=== PATIENT | male | born 1980 | race Caucasian/White ===

== ENCOUNTER 2021-05-23 17:16 | Emergency (ER) | payer SELFPAY ==
[~2021-05-23] VITALS: Ht 188 cm; Wt 80.0 kg
--- NOTE | 2021-05-23 18:13 | NUR ---
Pt sleeping, RR equal and unlabored. VSS. Will continue to monitor.
[2021-05-23 18:43] LABS: BASOPHILS % (AUTO) 1 % (0-1); EOSINOPHILS % (AUTO) 1 % (1-7); LYMPHOCYTES % (AUTO) 55 % (22-44); MEAN CORPUSCULAR HEMOGLOBIN 32.8 pg (27.5-34.5); MEAN CORPUSCULAR HGB CONC 34.6 g/dL (33.2-36.2); MEAN PLATELET VOLUME 6.1 fL (7.4-10.4); MONOCYTES % (AUTO) 6 % (2-9); NEUTROPHILS % (AUTO) 37 % (42-75); PLATELET COUNT 121 x10^3/uL (130-400); RED BLOOD COUNT 4.51 x10^6/uL (4.38-5.82); RED CELL DISTRIBUTION WIDTH 13.6 % (9.4-14.8)
[2021-05-23 18:47] LABS: ALANINE AMINOTRANSFERASE 32 U/L (12-78); ALBUMIN 3.6 g/dL (3.4-5.0); ANION GAP 8 mmol/L (5-15); CALCIUM 8.3 mg/dL (8.5-10.1); CHLORIDE 101 mmol/L (98-107); CREATININE 0.78 mg/dL (0.7-1.3)
[2021-05-23 18:49] LABS: ALKALINE PHOSPHATASE 112 U/L (45-117); BILIRUBIN,TOTAL 0.3 mg/dL (0.2-1.0); TOTAL PROTEIN 7.2 g/dL (6.4-8.2)
--- NOTE | 2021-05-23 18:50 | NUR ---
Report to [facility]ES[facility] trevino
--- NOTE | 2021-05-23 18:53 | NUR ---
received report from BESSY Singletary Pt back from [facility].
--- NOTE | 2021-05-23 19:54 | NUR ---
PT RESTING ON GURNEY, DENIES NEEDS AT THIS TIME.
--- NOTE | 2021-05-23 20:34 | NUR ---
pt ambulated to restroom steadily. pt provided orange juice, resting comfortably on gurney and denies any needs at this time.
--- NOTE | 2021-05-23 21:15 | NUR ---
Patient given discharge instructions and they have confirmed that they understand the instructions. Patient ambulatory with steady gait.
== END 2021-05-23 21:53 | disposition home or self-care (01) ==
LOC: ED 17:20
DX: S82.435A Nondisplaced oblique fracture of shaft of left fibula, initial encounter for closed fracture (principal); F10.120 Alcohol abuse with intoxication, uncomplicated; R41.82 Altered mental status, unspecified; Y90.0 Blood alcohol level of less than 20 mg/100 ml
CPT/HCPCS: 36415; 80053; 80320; 83690; 85025; 99284; G0480